=== PATIENT | female | born 1970 | race Caucasian/White ===

== ENCOUNTER → 2018-03-04 13:33 | Outpatient (CLI) | payer OTHER, SELFPAY ==
[2018-03-08 14:36] LABS: HPV Reflexed? NOT INDICATED
== END ==
PROVIDERS: Visit Provider Obstetrics & Gynecology
DX: Z12.4 Encounter for screening for malignant neoplasm of cervix (principal)
CPT/HCPCS: 88175; G0145

== ENCOUNTER → 2018-03-13 13:14 | Outpatient (CLI) | payer OTHER, SELFPAY ==
[2018-03-13 17:35] LABS: Chlamydia Trachomatis by PCR Negative (Negative); Neisserai gonorrhoeae by PCR Negative (Negative); Probe Check PASS; Sample Adequacy Control PASS; Specimen Processing Control PASS
== END ==
PROVIDERS: Visit Provider Obstetrics & Gynecology
DX: Z30.430 Encounter for insertion of intrauterine contraceptive device (principal); Z11.3 Encounter for screening for infections with a predominantly sexual mode of transmission
CPT/HCPCS: 87491; 87591

== ENCOUNTER → 2019-08-19 17:39 | Outpatient (CLI) | payer OTHER, SELFPAY ==
[2019-08-22 12:07] LABS: Age Gdln ACOG Testing 30-65 (.)
[2019-08-22 16:30] LABS: HPV APTIMA, High Risk Negative (Negative); HPV Reflexed? YES, CHARGE PATIENT
== END ==
PROVIDERS: Family Provider Internal Medicine; PCP Internal Medicine; Referring Provider Obstetrics & Gynecology; Visit Provider Obstetrics & Gynecology
DX: Z12.4 Encounter for screening for malignant neoplasm of cervix (principal)
CPT/HCPCS: 87624; 88175; G0145

== ENCOUNTER 2022-10-06 22:07 | Emergency (ER) | payer OTHER, SELFPAY ==
[2022-10-06 22:08] VITALS: BP 127/110; PULSE 91; RESP 16; TEMP 36.6; O2SAT 99; BMI 20.6
--- NOTE | 2022-10-06 22:25 | CT_ITS ---
INDICATION EXAM: CT abdomen and pelvis without contrast HISTORY: flank pain TECHNIQUE: No intravenous contrast. A radiation dose optimization technique was used for this scan. COMPARISON: CT abdomen and pelvis April 02, 2016. LIMITATIONS: None. LOWER CHEST: Normal. LIVER: A hypodense focus in the anterior aspect of the liver measures 2 x 1.8 cm, previously 1.8 x 1.6 cm. On the prior study, the lesion appeared solid measuring 40 Hounsfield units. On the current study, the lesion is decreased in density measuring 22 Hounsfield units. GALLBLADDER: Normal. BILE DUCTS: Normal. PANCREAS: Normal. SPLEEN: Normal. ADRENAL GLANDS: Normal. KIDNEYS/URETERS/BLADDER: A 1 mm nonobstructing left renal stone is identified. A 3 mm obstructing stone is in the distal left ureter near the ureterovesicular junction. There is moderate left hydronephrosis and mild hydroureter. Mild wall thickening of the incompletely distended bladder. AORTA: Normal caliber. BOWEL/MESENTERY: Normal. APPENDIX: Normal. PERITONEUM: Normal. REPRODUCTIVE ORGANS: The intrauterine device is low lying, new since the prior exam. BONES/SOFT TISSUES: No acute fracture. OTHER: None. CONCLUSION: 3 mm obstructing stone in the distal left ureter with associated moderate hydronephrosis. Low-lying intrauterine device. Mild wall thickening of the bladder could be secondary to cystitis or underdistention. 2 x 1.8 cm liver lesion is slightly increased in size since the prior exam. The appearance on the current study is most consistent with a cyst although the lesion appeared solid on the prior exam. Nonemergent ultrasound is recommended for clarification. Electronically Signed: Timo Chiang MD at 23:59 EST , CT/Abdomen/Pelvis without Cont IMPRESSION: undefined
[2022-10-06] MEDS: Morphine 4 MG/ML Syringe IV (22:31)
[2022-10-06] MEDS: Ondansetron 4 MG/2 ML Vial IV (22:31)
--- NOTE | 2022-10-06 22:32 | EDS_ITS ---
HPI History of Present Illness Chief Complaint: Flank Pain Narrative Narrative: Patient is a 52-year-old female with past medical history of depression and remote kidney stone in 2016. She states that earlier today around noon she noticed some left-sided flank/back pain that was mild in nature and that did not occur after excessive activity or any type of trauma. She states that as time progressed the pain began to radiate into her abdomen towards her groin and became more sharp and severe in nature. She states she went to an urgent care secondary to this where her urine was tested and showed blood without infection and with her symptoms there was concern for possible kidney stone so she was sent to the hospital for further evaluation PFSH [facility] Home Medications bupropion HCl 75 mg tablet 75 mg PO DAILY 04/02/16 [History Last Taken 04/02/16 75] nortriptyline 75 mg capsule (Pamelor) 75 mg PO QHS 04/02/16 [History Last Taken 04/01/16 75] Allergy/AdvReac Type Severity Reaction Status Date / Time metoclopramide HCl Allergy Rash Verified 10/06/22 22:09 [From Reglan] Sulfa (Sulfonamide Allergy Rash Verified 10/06/22 22:09 Antibiotics) Social History Smoking Status: Never smoker [facility] ED Constitutional Constitutional ED: Denies chills or fever(s) ENT ENT ED: Denies sore throat Cardiovascular Cardiovascular: Denies chest pain Respiratory/Chest Respiratory/Chest: Denies cough or dyspnea Gastrointestinal Gastrointestinal: Reports abdominal pain; Denies diarrhea, nausea or vomiting Genitourinary Genitourinary ED: Reports hematuria; Denies dysuria Musculoskeletal Musculoskeletal: Reports back pain; Denies myalgias Integumentary Denies rash Neurologic Neurologic: Denies headache(s) Hematologic/Lymphatic Hematologic/Lymphatic: Denies easy bleeding or easy bruising EXAM Physical Exam Const Vital Signs: 10/06/22 22:08 10/06/22 23:21 10/07/22 01:24 Temperature 98 F Temperature Source Temporal Pulse Rate 91 84 Respiratory Rate 16 18 Blood Pressure 127/110 H 135/75 H 120/70 Blood Pressure Mean 115 95 86 Pulse Ox 99 97 Oxygen Delivery Method Room Air Room Air 10/07/22 02:13 10/07/22 03:13 10/07/22 04:00 Temperature 97.2 F L 97.2 F L Temperature Source Temporal Pulse Rate 84 84 Respiratory Rate 18 18 Blood Pressure 120/70 120/70 Blood Pressure Mean 86 86 Pulse Ox 98 98 Oxygen Delivery Method Room Air Positive well nourished and well developed General Appearance ED: well developed HEENT Reports moist mucous membranes Eyes PERRL and EOMs intact bilaterally Neck supple Resp normal respiratory effort and clear to auscultation bilaterally Cardio regular rate and regular rhythm Rate: other Other Details: Radial pulses are plus 2 out of 4 bilaterally are equal and symmetric GI non-distended GI Narrative: Abdomen is soft and nondistended with normoactive bowel sounds. Patient has pain to palpation along the left-sided abdomen diffusely without voluntary guarding or rigidity. No pulsatile mass Auscultation: normoactive bowel sounds Palpation: soft Back/Spine Back/Spine Narrative: Positive left CVA pain noted Extremity normal to inspection Neuro oriented x3 and CN's II-XII intact bilaterally Sensorium / Orientation: alert Psych mental status grossly normal Skin no rashes or lesions noted Skin Narrative: No overlying soft tissue changes to suggest trauma or infection MDM MDM MDM Narrative Medical decision making narrative: Patient presented to the ER hypertensive but is in extreme pain and this is a normal physiologic response and otherwise vitals are stable. Her history and exam is consistent with kidney stones and secondary to his basic blood work and a noncontrast CT were ordered. Blood work revealed no leukocytosis or acute kidney damage or severe electrolyte derangement. CT scan confirmed a 3 mm stone in the distal left ureter causing mild obstruction and hydronephrosis. Patient required 4 morphine 30 of Toradol and 1 mg of Dilaudid before pain was rated a value of a 4. Despite this significant pain medication pain continued to return and would require 2 more doses of 0.5 mg Dilaudid. At this time patient does not have severe electrolyte derangement or acute kidney injury to warrant admission but she does have intractable pain and therefore will require hospitalization with urology consult. Urology is not present at this facility until Sunday. Therefore I cannot keep the patient at this hospital. Patient requested [facility] and they were contacted and they do agree to accept the patient at this time. Lab Data Attestation: I reviewed the patient's lab results. Labs: Laboratory Results - last 24 hr 10/06/22 10/06/22 22:15 22:15 WBC 8.2 RBC 4.67 Hgb 13.2 Hct 41.5 MCV 88.9 MCH 28.3 MCHC 31.8 L RDW Std Deviation 44.3 H RDW Coeff of Carlos 13.6 Plt Count 298 MPV 10.4 Immature Gran % (Auto) 0.200 Neut % (Auto) 54.5 Lymph % (Auto) 37.5 [place] % (Auto) 5.9 Eos % (Auto) 1.3 Baso % (Auto) 0.6 Absolute Neuts (auto) 4.5 Absolute Lymphs (auto) 3.07 Nucleated RBC % 0 Sodium 144 Potassium 3.8 Chloride 108 H Carbon Dioxide 27.0 Anion Gap 9 BUN 16 Creatinine 0.94 Estim Creat Clear Calc 63.44 Est GFR (MDRD) Af Amer 80 Est GFR (MDRD) Non-Af 66 BUN/Creatinine Ratio 16.9 Glucose 180 H Calcium 9.1 Radiography Diagnostic Testing: Clinical Impression(s) from Imaging Studies Abdomen/Pelvis CT 10/06/22 22:25 IMPRESSION: undefined Discharge Plan Triage Chief Complaint: Flank Pain ED Provider: Pedro Trevino Dx/Rx/DC Orders Clinical Impression: Kidney stone, Renal colic, Hydronephrosis, Intractable pain Prescriptions: No Action nortriptyline [Pamelor] 75 MG capsule 75 mg PO QHS Label Comments: antidepressant bupropion HCl 75 MG tablet 75 mg PO DAILY Label Comments: depression Primary Care Provider: Shelley House Referrals: Shelley House MD [Primary Care Provider] - Disposition Disposition: Acute Care Hospital Discharge Location: [facility] Discharge Date/Time: 10/07/22 03:52
[2022-10-06] MEDS: 0.9% Normal Saline 1,000 ML 999 ML IV (22:33)
[2022-10-06 22:38] LABS: Absolute Lymphocyte Count 3.07 X10^3/uL (0.83-4.51); Absolute Neutrophil Count 4.5 X10^3/uL (2.0-7.7); Basophil# 0.05 X10^3/uL; Basophil% 0.6 % (0-1); Eosinophil# 0.11 X10^3/uL; Eosinophils% 1.3 % (0-5); Hematocrit 41.5 % (37-47); Hemoglobin 13.2 g/dL (12.0-15.0); Lymphocyte # 3.07 X10^3/ul (0.83-4.51); Lymphocyte % 37.5 % (19-41); Mean Corp Hgb Conc 31.8 g/dL (32-36); Mean Corpuscular Hgb 28.3 pg (27.0-32.0); Mean Corpuscular Volume 88.9 fL (81-99); Mean Platelet Vol. 10.4 fl (6.2-12.0); Monocyte# 0.48 X10^3/uL; Monocyte% 5.9 % (0-10); NRBC Flagged by Analyzer 0 % (0-5); Neutrophil # 4.46 X10^3/uL (2.7-7.7); Neutrophil % 54.5 % (47-70); Platelet Count 298 K/mm3 (150-450); RBC Distribution Width CV 13.6 % (11.6-14.6); RBC Distribution Width SD 44.3 fl (35.1-43.9); Red Blood Count 4.67 M/mm3 (4.2-5.4); White Blood Count 8.2 K/mm3 (4.4-11.0)
[2022-10-06] MEDS: Ketorolac 30 MG/ML Syringe IV (22:57)
[2022-10-06 23:01] LABS: Anion Gap 9 (5-15); BUN 16 mg/dL (7-18); BUN/Creat Ratio 16.9 RATIO (10-20); Calcium,Total 9.1 mg/dL (8.5-10.1); Chloride 108 mmol/L (98-107); Creatinine, Serum 0.94 mg/dL (0.55-1.02); EST Glomerular Filtration Rate 66 mL/min (>60); Est Glom Filt Rate - Afr Amer 80 mL/min (>60); Estimated Creatinine Clearance 63.44 ml/min; Glucose 180 mg/dL (74-106); Potassium 3.8 mmol/L (3.5-5.1); Sodium Level 144 mmol/L (136-145)
[2022-10-06] MEDS: HYDROmorphone 1 MG/ML Syringe IV (23:19)
[2022-10-06 23:21] VITALS: BP 135/75
[2022-10-07] MEDS: Ondansetron 4 MG/2 ML Vial IV ×2 (00:18→03:44)
[2022-10-07] MEDS: HYDROmorphone 0.5 MG/0.5 ML SYRINGE IV ×2 (01:22→03:44)
[2022-10-07 01:24] VITALS: BP 120/70; PULSE 84; RESP 18; O2SAT 97
[2022-10-07 02:13] VITALS: BP 120/70; PULSE 84; RESP 18; O2SAT 98
[2022-10-07 03:13] VITALS: TEMP 36.2
[2022-10-07 04:00] VITALS: BP 120/70; PULSE 84; RESP 18; TEMP 36.2; O2SAT 98
== END 2022-10-07 03:52 | disposition short-term general hospital (02) ==
PROVIDERS: Emergency Provider Emergency Medicine; PCP Internal Medicine; Visit Provider Emergency Medicine
DX: N13.2 Hydronephrosis with renal and ureteral calculous obstruction (principal); R31.9 Hematuria, unspecified; Z79.899 Other long term (current) drug therapy; Z87.442 Personal history of urinary calculi
CPT/HCPCS: 74176; 80048; 85025; 96361; 96374; 96375; 96376; 99284; A4216; J2405